=== PATIENT | female | born 1950 | race Asian ===

== ENCOUNTER 2023-08-09 23:45 | Inpatient (IN) | payer MEDICARE, OTHER, SELFPAY ==
[2023-08-09] VITALS (7 sets, daily range): BP systolic 106–230; BP diastolic 62–130
--- NOTE | 2023-08-09 19:15 | ED.GENMED ---
History of Present Illness
<Kahlil Booker PA-C - Last Filed: 08/09/23 22:38>
General
Chief Complaint: Breathing Problem
Time Seen by Provider: 08/09/23 19:09
Travel History
Have you had any contact with someone who has COVID-19?: No
Do you have any symptoms of coronavirus? Fever > 100 degrees, chills, cough, shortness of breath, sore throat, loss of taste or smell, muscle aches, or headache?: Yes
Symptoms:: SOB
History of Present Illness
History of Present Illness:
73-year-old female with history of asthma presents to the emergency department for evaluation of nasal congestion and coughing for the past 3 days. Saw her primary care physician earlier today where she was noted to be febrile and received
prescriptions for steroids and antibiotics. Over the past 1 to 2 hours her shortness of breath dramatically worsened. She reports profound wheezing, shortness of breath, and chest tightness. She has been intubated for her asthma but this was in
the remote past approximately 20 years ago. Non-smoker
Past History
<Kahlil Booker PA-C - Last Filed: 08/09/23 22:38>
Past History
ED Past Medical History: None
Social History
Tobacco: Non-smoker
Alcohol: Occasional
Drug: None
Personal:
Living: with family
Review of Systems
<Kahlil Booker PA-C - Last Filed: 08/09/23 22:38>
Review of Systems
Allergies reviewed?: Yes
All Other Systems: ROS reviewed and negative except as documented in HPI and ROS
Phy Exam
<Kahlil Booker PA-C - Last Filed: 08/09/23 22:38>
Physical Exam
Physical Exam:
GEN: Ill-appearing, in active respiratory distress
Eyes: PERRLA, EOMs intact, no scleral icterus
HENT: NCAT, oral mucosa moist
Lungs: Tachypneic with accessory muscle use, audible wheezing, diminished bibasilar breath sounds
Cardiac: Markedly tachycardic, no murmurs
Neuro: AO x 3
MSK: No gross deformity or ecchymosis. No edema. No digital clubbing
Skin: No rashes, petechiae. Normal color, no pallor or jaundice.
Psych: Calm, cooperative, proper hygiene
Scores
<Kahlil Booker PA-C - Last Filed: 08/09/23 22:38>
Heart Failure Risk
Heart Failure Risk Score: Not Applicable
Course
<Kahlil Booker PA-C - Last Filed: 08/09/23 22:38>
Orders/Labs/Results
Orders:
Orders
08/09/23 19:12
Albuterol Nebs [Ventolin Nebules] 7.5 mg .ROUTE .STK-MED ONE
08/09/23 19:13
Albuterol Sulfate [Ventolin Nebules] 10 mg INH R NOW STA
Ipratropium Nebs [Atrovent Nebules] 0.5 mg .ROUTE .STK-MED ONE
Ipratropium Nebs [Atrovent Nebules] 1 mg INH R NOW STA
Magnesium Sulfate 2 Gram/50 ml [Magnesium Sulfate] 2 gram in 50 ml IV NOW
MethylPREDNISolone PF [Solu-Medrol Pf] 60 mg IV NOW STA
08/09/23 19:14
Albuterol Nebs [Ventolin Nebules] 2.5 mg .ROUTE .STK-MED ONE
Ipratropium Nebs [Atrovent Nebules] 0.5 mg .ROUTE .STK-MED ONE
CR Chest Portable - 1 View Urgent
Comment:
Reason For Exam: SOB
Reason Study Needs to be Portable: Other
08/09/23 19:26
COVID-19 Antigen Urgent
Source: Nasal Swab
Complete Blood Count/With Diff Urgent
Comprehensive Metabolic Panel Urgent
Lactic Acid Q4H
Comment: CANCEL 2nd LACTIC ACID IF 1st LACTIC ACID IS LESS THAN 2
Prothrombin Time Urgent
Venous Blood Gas Urgent
%Oxygen/Room Air: 93
Blood Culture Q30M
JOSE Source: Blood/Venous
Specimen Description:
Blood Culture Q30M
JOSE Source: Blood/Venous
Specimen Description:
Influenza A+B Rapid Molecular Urgent
JOSE Source: Nasal Swab
Specimen Description:
08/09/23 19:29
EKG [Electrocardiogram (*1)] Urgent
Reason for Study: Shortness of Breath
EKG- Treatment ONCE
08/09/23 20:55
Ketorolac [Toradol] 15 mg IV NOW STA
08/09/23 21:00
CT Chest W/o Iv Contrast Urgent
Comment:
Reason For Exam: R back pain, possible PTX
08/09/23 21:43
Midazolam HCl [Versed] 2 mg IV NOW STA
08/09/23 22:00
Lactic Acid Q4H
Comment: CANCEL 2nd LACTIC ACID IF 1st LACTIC ACID IS LESS THAN 2
08/09/23 22:02
Midazolam HCl [Versed] 2 mg .ROUTE .STK-MED ONE
CR Chest Portable - 1 View Urgent
Comment:
Reason For Exam: sp ct
Reason Study Needs to be Portable: Patient Unstable
08/09/23 22:25
PULMONARY CONSULT Routine
Consulting Provider: Ree Arreola
Was physician already notified: Yes
Abnormal Lab Results
08/09/23
19:26
Absolute Neuts (auto) 7.5 H 10^3/uL
(1.4-6.5)
Absolute Lymphs (auto) 0.6 L 10^3/uL
(1.2-3.4)
Neutrophils % 88.5 H %
(42.2-75.2)
Lymphocytes % 7.2 L %
(20.5-51.1)
VBG pO2 144 H mmHg
(30-50)
Sodium 132 L mmol/L
(135-145)
Chloride 96 L mmol/L
(98-107)
Glucose 205 H mg/dl
(70-99)
Albumin 5.1 H g/dl
(3.5-5.0)
08/09/23 19:26
08/09/23 19:26
Vital Signs
Initial and Last Documented VS:
Initial Vital Signs
Temp Pulse Resp BP Pulse Ox
98.3 F 131 28 230/130 95
08/09/23 19:06 08/09/23 19:06 08/09/23 19:06 08/09/23 19:06 08/09/23 19:06
Last Documented Vital Signs
Temp Pulse Resp BP Pulse Ox
98.3 F 114 23 132/76 100
08/09/23 19:06 08/09/23 21:45 08/09/23 21:45 08/09/23 21:07 08/09/23 21:45
<Jimenez Barahona, DO - Last Filed: 08/09/23 22:27>
Orders/Labs/Results
Orders:
Orders
08/09/23 19:12
Albuterol Nebs [Ventolin Nebules] 7.5 mg .ROUTE .STK-MED ONE
08/09/23 19:13
Albuterol Sulfate [Ventolin Nebules] 10 mg INH R NOW STA
Ipratropium Nebs [Atrovent Nebules] 0.5 mg .ROUTE .STK-MED ONE
Ipratropium Nebs [Atrovent Nebules] 1 mg INH R NOW STA
Magnesium Sulfate 2 Gram/50 ml [Magnesium Sulfate] 2 gram in 50 ml IV NOW
MethylPREDNISolone PF [Solu-Medrol Pf] 60 mg IV NOW STA
08/09/23 19:14
Albuterol Nebs [Ventolin Nebules] 2.5 mg .ROUTE .STK-MED ONE
Ipratropium Nebs [Atrovent Nebules] 0.5 mg .ROUTE .STK-MED ONE
CR Chest Portable - 1 View Urgent
Comment:
Reason For Exam: SOB
Reason Study Needs to be Portable: Other
08/09/23 19:26
COVID-19 Antigen Urgent
Source: Nasal Swab
Complete Blood Count/With Diff Urgent
Comprehensive Metabolic Panel Urgent
Lactic Acid Q4H
Comment: CANCEL 2nd LACTIC ACID IF 1st LACTIC ACID IS LESS THAN 2
Prothrombin Time Urgent
Venous Blood Gas Urgent
%Oxygen/Room Air: 93
Blood Culture Q30M
JOSE Source: Blood/Venous
Specimen Description:
Blood Culture Q30M
JOSE Source: Blood/Venous
Specimen Description:
Influenza A+B Rapid Molecular Urgent
JOSE Source: Nasal Swab
Specimen Description:
08/09/23 19:29
EKG [Electrocardiogram (*1)] Urgent
Reason for Study: Shortness of Breath
EKG- Treatment ONCE
08/09/23 20:55
Ketorolac [Toradol] 15 mg IV NOW STA
08/09/23 21:00
CT Chest W/o Iv Contrast Urgent
Comment:
Reason For Exam: R back pain, possible PTX
08/09/23 21:43
Midazolam HCl [Versed] 2 mg IV NOW STA
08/09/23 22:00
Lactic Acid Q4H
Comment: CANCEL 2nd LACTIC ACID IF 1st LACTIC ACID IS LESS THAN 2
08/09/23 22:02
Midazolam HCl [Versed] 2 mg .ROUTE .STK-MED ONE
CR Chest Portable - 1 View Urgent
Comment:
Reason For Exam: sp ct
Reason Study Needs to be Portable: Patient Unstable
08/09/23 22:25
PULMONARY CONSULT Routine
Consulting Provider: Ree Arreola
Was physician already notified: Yes
Abnormal Lab Results
08/09/23
19:26
Absolute Neuts (auto) 7.5 H 10^3/uL
(1.4-6.5)
Absolute Lymphs (auto) 0.6 L 10^3/uL
(1.2-3.4)
Neutrophils % 88.5 H %
(42.2-75.2)
Lymphocytes % 7.2 L %
(20.5-51.1)
VBG pO2 144 H mmHg
(30-50)
Sodium 132 L mmol/L
(135-145)
Chloride 96 L mmol/L
(98-107)
Glucose 205 H mg/dl
(70-99)
Albumin 5.1 H g/dl
(3.5-5.0)
08/09/23 19:26
08/09/23 19:26
Vital Signs
Initial and Last Documented VS:
Initial Vital Signs
Temp Pulse Resp BP Pulse Ox
98.3 F 131 28 230/130 95
08/09/23 19:06 08/09/23 19:06 08/09/23 19:06 08/09/23 19:06 08/09/23 19:06
Last Documented Vital Signs
Temp Pulse Resp BP Pulse Ox
98.3 F 114 23 132/76 100
08/09/23 19:06 08/09/23 21:45 08/09/23 21:45 08/09/23 21:07 08/09/23 21:45
<Jimenez Barahona DO - Last Filed: 08/09/23 22:27>
Chest Tube
Indication for procedure:: Tension pneumothorax
Procedure completed by: Wyatt Booker
Consent form signed: No
Anesthesia: 1% Lidocaine
Chest tube placed to: right side
Size of chest tube (cm): 22
Preparation: cleaned with Betadine
Chest tube position: anterior axillary line
Chest tube sutured to skin?: Yes
Chest tube complications: none
Additional information:
Verbal consent timeout done somewhat urgently due to tension physiology seen on CAT scan patient tolerated the procedure well
<Kahlil Booker PA-C - Last Filed: 08/09/23 22:38>
MDM/Problems Addressed
MDM/Problems Addressed:
73-year-old female presents the emergency department with cold flulike symptoms. She was seen by her doctor and started on azithromycin and steroids today. She had abrupt worsening of symptoms approxi-1 hour prior to arrival, on arrival patient is
noted to be tachycardic and mildly hypoxic with coarse wheezes heard throughout all lung patino. She is somewhat diminished in the right base and chest x-ray reveals small right pneumothorax. Patient's clinical status improved from a respiratory
standpoint on neb treatments however she remained profoundly wheezy. She was then sent sent for a follow-up CT scan which shows a quite large pneumothorax with tension physiology. She was urgently consented for pigtail chest tube was placed at the
bedside by myself, patient tolerated the procedure well. Follow-up chest x-ray shows adequate placement of the tube with improvement in pneumothorax. Patient will be admitted to the hospitalist service for further management
<Kahlil Booker PA-C - Last Filed: 08/09/23 22:38>
*Critical Care Note
Total Time (30-74mins, 75-104mins- exclusive of procedures): 60 minutes
comment:
Critical care time: 60 minutes
Critical care time was exclusive of: Separately billable procedures, treating other patients, and teaching time
Critical care was necessary to treat or prevent imminent or life-threatening deterioration of the following conditions: Acute respiratory failure, tension pneumothorax
Critical care time spent personally by me on the following activities:
[x] Review of old charts
[x] Obtaining history from patient or surrogate
[x] Ordering and review of the laboratory studies
[x] Ordering and review of radiographic studies
[x] Ordering and performing treatments and interventions
[x] Patient patient's response to treatment
[x] Development of treatment plan with patient or surrogate
<Jimenez Barahona DO - Last Filed: 08/09/23 22:27>
*Radiology
Radiology exam reviewed: preliminary read by ED provider and radiology read reviewed
*Critical Care Note
Total Time (30-74mins, 75-104mins- exclusive of procedures): 30
ED Attending Note
<Kahlil Booker PA-C - Last Filed: 08/09/23 22:38>
-
Portions of this chart may have been created with voice recognition software.� Occasional wrong word or��sound alike� substitutions may have occurred due to the inherent limitations of voice recognition software.
<Jimenez Barahona DO - Last Filed: 08/09/23 22:27>
ED Attending Note
Patient seen and examined by attending physician: Yes
I performed the substantive portion of visit, reviewed & personally made and approve the management plan that is documented in note by myself or GALI.: Yes
ED Attending Note:
Seen with PA examined independently 73-year-old asthmatic intubated years ago not on much as an outpatient cough shortness of breath and wheeze treated with nebs steroids magnesium, chest x-ray and CT showed pneumothorax possible tension physiology
she is feeling better now, verbal consent obtained for thoracostomy tube
I was present and supervised physician facility assistant for chest tube
Discharge Plan
Departure
Patient Disposition: Admit
Date of Disposition: 08/09/23
Time of Disposition: 21:44
Admit to: ICU
Presentation/result/management discussed w/ accepting MD/DO: Hospitalist
Discharge Problem:
Asthma exacerbation, Tension pneumothorax
Prescriptions:
No Action
azithromycin 250 mg Tablet
0 mg PO .COMPLEX
Patient Comments:
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
Rx Instructions:
For 250 mg dose pack: take 500 mg today (day 1), then 250 mg for 4 days (days 2-5)
methylprednisolone [Medrol (Evan)] 4 mg Tablets,Dose Pack
0 mg PO PER PKG DIR
Patient Comments:
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
albuterol sulfate [ProAir HFA] 90 mcg/actuation Hfa Aerosol Inhaler
2 puff INHALATION R Q6HPRN PRN (Reason: sob)
Referrals:
Erma Petersen MD [Family Provider] -
Interventions
Interventions:
ED- Cardiac Assessment Last Done: 08/09/23 20:14
ED- Pulmonary Assessment Last Done: 08/09/23 20:14
[2023-08-09] MEDS: VENTOLIN NEBULES 10 MG INH (19:22)
[2023-08-09] MEDS: ATROVENT NEBULES 1 MG INH (19:22)
[2023-08-09] MEDS: MAGNESIUM SULFATE 50 IV (19:28)
[2023-08-09] MEDS: SOLU-MEDROL PF 60 MG IV (19:28)
[2023-08-09 19:37] LABS: % Basophils 0.7 % (0-2); % Eosinophils 0.1 % (0-6); % Immature Granulocytes 0.4 % (0-0.5); % Lymphocytes 7.2 % (20.5-51.1); % Monocytes 3.1 % (1.7-9.3); % Neutrophils 88.5 % (42.2-75.2); Absolute Basophils 0.1 10^3/uL (0-0.2); Absolute Lymphocytes 0.6 10^3/uL (1.2-3.4); Absolute Monocytes 0.3 10^3/uL (0.1-0.6); Absolute Neutrophils 7.5 10^3/uL (1.4-6.5); Hematocrit 40.4 % (37.0-47.0); Hemoglobin 14.2 g/dL (12.0-16.0); Mean Corp Hgb Conc. 35.1 g/dL (33.0-37.0); Mean Corpuscular Hgb 29.8 pg (27.0-31.0); Mean Corpuscular Volume 84.7 fL (81.0-99.0); Mean Platelet Volume 9.5 fL (7.4-10.4); Nucleated Red Blood Cells % 0 %; Platelet Count 275 10^3/uL (130-400); Red Blood Cell Count 4.77 10^6/uL (4.20-5.40); Red Cell Dist. Width 13.6 % (11.5-14.5); White Blood Cell Count 8.4 10^3/uL (4.8-10.8)
[2023-08-09 19:38] LABS: Venous Blood Gas O2 Sat % 99.9 %; Venous Blood Gas pCO2 42 mmHg (35-48); Venous Blood Gas pO2 144 mmHg (30-50)
[2023-08-09 19:47] LABS: INR 0.93; PT 12.3 Sec (11.4-14.6)
[2023-08-09 19:51] LABS: Lactic Acid 1.9 mmol/L (0.7-2.0)
[2023-08-09 19:52] LABS: ALT (SGPT) 24 U/L (0-35); AST (SGOT) 33 U/L (14-36); Albumin 5.1 g/dl (3.5-5.0); Alkaline Phosphatase 58 U/L (38-126); Blood Urea Nitrogen 12 mg/dl (7-17); Calcium 9.6 mg/dl (8.4-10.2); Carbon Dioxide 24 mmol/L (22-30); Chloride 96 mmol/L (98-107); Glucose 205 mg/dl (70-99); Potassium 4.6 mmol/L (3.5-5.1); Sodium 132 mmol/L (135-145); Total Bilirubin 0.3 mg/dl (0.2-1.3); Total Protein 7.9 g/dl (6.3-8.2); eGFR > 60.00
[2023-08-09 19:59] LABS: COVID-19 Antigen Negative (Negative)
[2023-08-09] MEDS: TORADOL 15 MG IV (21:01)
[2023-08-09] MEDS: VERSED 2 MG IV (21:50)
--- NOTE | 2023-08-09 22:21 | EDRN ---
14Fr chest tube placed by Wyatt gonsales. Patient tolerated well. No drainage, no air bubbles. Patient states chest pain is gone since the insertion of tube.
--- NOTE | 2023-08-09 23:27 | HPS.HSE ---
Family Physician
-
Family Physician: Erma Petersen
Chief Complaint
-
SOB
History of Present Illness
Patient is a 73y F with PMH significant for asthma who presents to ED complaining of SOB. Patient reports several days of cough, congestion and mild wheezing. She denies any fevers, known sick contacts. She was seen by a physician today and
prescribed azithromycin and Medrol pack. Upon her return home this afternoon, patient developed sudden and severe SOB - much worse than previous - and presented to the ED for evaluation.
In the ED, evaluation revealed R sided pneumothorax with tension effect. Chest tube was placed in the ED and patient noted immediate and significant improvement in her symptoms.
She is currently resting comfortably and continues to feel improved from presentation.
Patient has history of severe asthma having required intubation in the past. She takes no daily / controller medications however.
She denies any prior history of pneumothorax. She denies any recent history of injury, trauma, etc.
Medical History
Past Medical History
Past Medical History: Reports Other
Additional Past Medical History:
Asthma
Past Surgical History: Reports Other
Additional Past Surgical History:
Bladder Sling
Right Elbow ORIF
Social History
Tobacco: Non-smoker
Alcohol: None
Drug: None
Family History
Family History: Not pertinent
Allergies / Home Medications
Allergies reflects when Allergies were last updated in [employer].
Home Medications with original date entered in [employer]
Allergy/Medication List:
Allergies
Allergy/AdvReac Type Severity Reaction Status Date / Time
NKA - No Known Allergies Allergy Unknown Uncoded 08/09/23 19:06
Home Medications
albuterol sulfate 90 mcg/actuation aerosol inhaler (ProAir HFA) 2 puff inhalation R Q6HPRN PRN sob 08/09/23
azithromycin 250 mg tablet 0 mg PO .COMPLEX 08/09/23
methylprednisolone 4 mg tablets in a dose pack (Medrol (Evan)) 0 mg PO PER PKG DIR 08/09/23
Review of Systems
-
History Source: Patient
A 12 point ROS was completed and negative except as noted: Yes
Constitutional: Reports Fatigue; Denies Fever or Chills
EENT: Denies Sore Throat
Respiratory: Reports Cough and Trouble Breathing
Cardiac: Reports Chest Pain; Denies Palpitations
Abdomen/GI: Denies Abdominal Pain, Nausea, Vomiting or Diarrhea
: Denies Dysuria, Frequency or Flank Pain
Musculoskeletal: Reports Other (Back Pain)
Neurological: Denies Dizzy or Headache
Psych: Denies Depression or Anxiety
Physical Exam
Vital Signs
Vital Signs
Temp Pulse Resp BP Pulse Ox
98.3 F 114 23 132/76 100
08/09/23 19:06 08/09/23 21:45 08/09/23 21:45 08/09/23 21:07 08/09/23 21:45
Physical Exam
General: Other (73y F resting comfortably in NAD.)
HEENT: Moist mucous membranes and PERRLA
Respiratory: Clear and Other (Perhaps very faint expiratory wheeze. Right sided chest tube in place to suction.); No Rales or Rhonchi
Cardiac: S1/S2 and Regular Rhythm; No Murmur
GI: Soft, Non Tender, Non Distended and Normal Bowel Sounds
Musculoskeletal: No Clubbing, No Cyanosis and No Edema
Neuro: AO x 3
Laboratory Results
-
08/09/23 19:26
08/09/23 19:
Laboratory Results
PT 12.3 Sec (11.4-14.6) 08/09/23 19:26
INR 0.93 08/09/23 19:26
Lactic Acid 1.9 mmol/L (0.7-2.0) 08/09/23 19:
Total Bilirubin 0.3 mg/dl (0.2-1.3) 08/09/23 19:26
AST 33 U/L (14-36) 08/09/23 19:26
ALT 24 U/L (0-35) 08/09/23 19:26
Alkaline Phosphatase 58 U/L (38-126) 08/09/23 19:26
Impression/Plan
-
A/P: Patient is a 73y F with PMH significant for asthma who presents to ED with recent cough / cold symptoms and abrupt worsening of SOB today.
Right Sided Tension Pneumothorax
- Admit for further evaluation and treatment.
- Patient with immediate and significant improvement in symptoms s/p chest tube placement in the ED.
- Maintain chest tube to suction overnight.
- Pulmonary evaluation in the AM.
- Repeat CXR in the AM - follow serial imaging.
- Follow for any new / recurrent dyspnea or other complaints.
Asthmatic Bronchitis with Acute Exacerbation
- COVID / Influenza negative in the ED.
- Afebrile and without leukocytosis, etc.
- Will continue IV steroids for now - but taper quickly if able. Not a great deal of wheezing at present.
- Abx / doxycycline for now. Follow for any fever or other new symptoms.
- Follow for continued clinical improvement.
- Albuterol PRN.
- Pulmonary evaluation as noted above.
DVT Prophylaxis: SCDs
Code Status: Full
[2023-08-10] VITALS (10 sets, daily range): BP systolic 113–160; BP diastolic 67–93; BMI 26.0
--- NOTE | 2023-08-10 01:41 | PTCARENOTE ---
c.t to minus 20 - no crepitus/tidaling 2 liters o2 . sinus tach. ax3- pt voided on bsc- expresses feeling much better after ct insertion- afebrile
[2023-08-10] MEDS: VIBRAMYCIN 260 MG IV ×2 (03:01→13:12)
[2023-08-10] MEDS: SOLU-MEDROL PF 40 MG IV ×3 (03:01→20:43)
[2023-08-10 04:06] LABS: Hematocrit 39.5 % (37.0-47.0); Hemoglobin 13.8 g/dL (12.0-16.0); Mean Corp Hgb Conc. 34.9 g/dL (33.0-37.0); Mean Corpuscular Hgb 30.1 pg (27.0-31.0); Mean Corpuscular Volume 86.2 fL (81.0-99.0); Mean Platelet Volume 10.2 fL (7.4-10.4); Platelet Count 262 10^3/uL (130-400); Red Blood Cell Count 4.58 10^6/uL (4.20-5.40); Red Cell Dist. Width 13.6 % (11.5-14.5); White Blood Cell Count 8.3 10^3/uL (4.8-10.8)
[2023-08-10 04:31] LABS: Blood Urea Nitrogen 11 mg/dl (7-17); Calcium 9.4 mg/dl (8.4-10.2); Carbon Dioxide 23 mmol/L (22-30); Chloride 98 mmol/L (98-107); Estimated Creatinine Clearance 68 ml/min; Glucose 228 mg/dl (70-99); Potassium 4.4 mmol/L (3.5-5.1); Sodium 134 mmol/L (135-145); eGFR > 60.00
--- NOTE | 2023-08-10 07:47 | W.PN.HOSP.TC ---
Today's Communication/Plan
-
see bold
Assessment / Plan
Assessment / Plan
73y F with PMH significant for asthma who presents to ED with recent cough / cold symptoms and abrupt worsening of SOB today.
Gen: NAD, AAOx3.
Eyes: EOMI, PERRLA, no scleral icterus.
Neck: supple.
CV: RRR, +S1/S2, no m/r/g.
Resp: CTAB, no rales, wheezes, or rhonchi.
Abd: +BS, soft, NT, ND
Skin: No rashes.
Neuro: CN 2-12 intact, non-focal.
Psych: Normal mood and affect.
Right Sided Tension Pneumothorax
�- Patient with immediate and significant improvement in symptoms s/p chest tube placement in the ED.
�- Maintain chest tube to suction
�- c/s Pulmonary
�- check CXR this AM - follow serial imaging.
Asthmatic Bronchitis with Acute Exacerbation:
�- COVID / Influenza negative in the ED.
�- Afebrile and without leukocytosis, etc.
�- Will continue IV steroids for now - but taper quickly if able.� Not a great deal of wheezing at present.
�- Abx / doxycycline for now.� Follow for any fever or other new symptoms.
�- Albuterol PRN.
�- Pulmonary c/s
FULL/SCDs
Anticipated Discharge: 24 - 48 hours
Subjective/Interval History
-
Date of Service: August 10, 2023
Denies SOB. Mild pain at chest tube site.
Objective Data
-
Labs:
Laboratory Results
08/09/23 08/10/23
19:26 03:11
WBC 8.4 8.3
Hgb 14.2 13.8
Hct 40.4 39.5
Plt Count 275 262
PT 12.3
INR 0.93
Sodium 132 L 134 L
Potassium 4.6 4.4
Chloride 96 L 98
Carbon Dioxide 24 23
BUN 12 11
Creatinine 0.7 0.4 L
Glucose 205 H 228 H
Calcium 9.6 9.4
Total Bilirubin 0.3
AST 33
ALT 24
Alkaline Phosphatase 58
Vital Signs:
Vital Signs
Temp Pulse Resp BP Pulse Ox
97.4 F 92 17 122/79 94
08/10/23 03:30 08/10/23 06:00 08/10/23 06:00 08/10/23 06:00 08/10/23 06:00
I&O
08/09/23 08/10/23 08/11/23
06:59 06:59 07:59
Intake Total 380 / 380
Balance 380 / 380
--- NOTE | 2023-08-10 08:44 | PTCARENOTE ---
Patient received from canal structure operator. Patient resting comfortably in bed. AAO, VSS. No events noted overnight. No complaints of pain at this time. Currently with right chest tube, minimal drainage if any, site CDI. Now on Room Air. Diet advanced
to Regular. Call villegas in reach.
--- NOTE | 2023-08-10 10:54 | CON.PUL ---
Consultation
Consultation Request
Date/Time Consultation Requested: 08/09/23
Date/Time Consultation Performed: 08/10/23
Performing Provider: Elba
Reason for Consultation: Asthma/PTX
Medical History
-
History of Present Illness:
Patient is a 73 year old F with PMH significant for asthma who presents to ED complaining of SOB.� Patient reports several days of cough, congestion and mild wheezing.� She denies any fevers, known sick contacts.� She was seen by her OP PCP and
prescribed azithromycin and Medrol pack.� Upon her return home this afternoon, patient developed sudden and severe SOB, acute on chronic worsening. In the ED, evaluation revealed R sided pneumothorax with concern for tension.� Chest tube was placed
in the ED and patient noted immediate and significant improvement in her symptoms.
Repeat CXR improved.
Patient has history of severe asthma having required intubation in the past.� She does not see pulmonary OP and is not on controller inhaler medications. She denies any prior history of pneumothorax.�
Nonsmoker.
Denies history of lung disease in the family.
Past Medical History
Past Medical History: Other (see list below)
Social History
Tobacco: Non-smoker
Alcohol: None
Drug: None
Family History
Family History: Reviewed & Not Pertinent
Allergies / Home Medications
Allergies
Allergy/AdvReac Type Severity Reaction Status Date / Time
NKA - No Known Allergies Allergy Unknown Uncoded 08/09/23 19:06
Home Medications
Medication Instructions Recorded Confirmed Last Taken Type
albuterol sulfate 90 mcg/actuation 2 puff inhalation R Q6HPRN PRN sob 08/09/23 08/09/23 Unknown History
aerosol inhaler (ProAir HFA)
azithromycin 250 mg tablet 0 mg PO .COMPLEX 08/09/23 08/09/23 08/09/23 History
500 mg
methylprednisolone 4 mg tablets in 0 mg PO PER PKG DIR 08/09/23 08/09/23 08/09/23 History
a dose pack (Medrol (Evan)) 16 mg
Review of Systems
-
History Source: Patient
All other systems: Negative unless noted
Vitals / Labs / Diagnostic Testing
Vital Signs
Temp Pulse Resp BP Pulse Ox
97.6 F 99 21 141/85 93
08/10/23 07:44 08/10/23 08:00 08/10/23 08:00 08/10/23 08:00 08/10/23 08:00
Lab Data
08/10/23 03:11
08/10/23 03:11
Laboratory Results
08/09/23
19:26
PT 12.3
INR 0.93
Microbiology
08/09/23 19:26 Nasal Swab Influenza Types A & B (CHELO) - Final
Negative for Influenza A & B, NAAT
Negative results must be combined with clinical observations
and patient history.
Nucleic Acid Amplification test (NAAT)performed on the
[employer] platform.
Diagnostic Testing:
Physical Exam
-
HEENT: Normocephalic, Anicteric and Moist Mucous Membranes
Cardiovascular: S1/S2 and Regular Rhythm
Respiratory: Wheeze (slight with cough), Non-Labored Respirations and Other (chest tube, no leak)
GI: Soft, Non Distended and Non Tender
Neurology: Awake, Alert, Oriented, AO x 3 and No Motor Deficits
Skin: Warm, Dry and Good Color
General: Comfortable and Other (NAD)
Assessment
-
Patient is a 73 year old F with PMH significant for asthma who presents to ED complaining of chronic SOB for several weeks.� Patient then noted sudden and severe SOB in the past 24 hours, acute on chronic worsening. In the ED, evaluation
revealed R sided pneumothorax with concern for tension s//p Chest tube placement in ED. We are consulted for eval 08/10/23.
Acute R sided pneumothorax s/p chest tube placement
Asthma exacerbation
Outpatient treatment for possible bronchitis, fever at home
Hyponatremia
Hyperglycemia
Conditions present [employer]
R arm fracture
Osteoporosis
Cystocele vag keri 2006
Constipation
Asthma
Plan
No oxygen was needed on admission, currently saturating >90% on RA
Prior history of lung disease is noted including severe asthma having required intubation in the past.�
She does not see pulmonary OP and is not on controller inhaler medications. No sign Eos on cbc.
She denies any prior history of pneumothorax.�
Nonsmoker.
Acute ptx suspect from coughing
CXR obtained indicating moderate size with possible tension s/p chest tube placement
Repeat CXR appears improved
Can trial waterseal to see if leak persists, not leaking for me but does not appear on suction
Other imaging reviewed, CT showing ptx, no bullae
We will add ICS inhaler to reduce her cough complaints
Will need outpatient pulmonary evaluation in our office for PFTs and 6MWT
Reviewed with patient
We will follow
Diagnostic Data
Chest XR- 08/09/23- A right chest tube catheter has been placed. No radiographically demonstrable residual pneumothorax. Mormon of mediastinal alignment. Minor atelectasis at the right lung base. Small amount of subcutaneous emphysema adjacent to
the right lateral chest wall.
CT Scan: CHEST 08/09/23- Large right pneumothorax, suggested under mild tension, with slight leftward shift of the heart and mediastinum.
Echo:
PFT's:
Reports and relevant images were personally reviewed.
[2023-08-10] MEDS: SENOKOT-S 1 TABLET PO (22:20)
[2023-08-11] VITALS (12 sets, daily range): BP systolic 111–177; BP diastolic 66–104; BMI 25.8
[2023-08-11] MEDS: VIBRAMYCIN 260 MG IV ×2 (03:09→14:45)
[2023-08-11] MEDS: SOLU-MEDROL PF 40 MG IV ×3 (04:31→21:18)
--- NOTE | 2023-08-11 05:17 | PTCARENOTE ---
Chest tube dressing clean dry and intact, no output overnight, remains connected to suction at -20mmgh. Pt has not had documented BM during admission. CELERY TIER notified and Senna ordered. No acute changes overnight. Please see full head to toe for full
assessment.
--- NOTE | 2023-08-11 07:44 | PTCARENOTE ---
New order for chest tube to water seal. SCanit output
--- NOTE | 2023-08-11 10:28 | W.PN.PUL3 ---
Today's Communication / Plan
-
Water seal this AM, repeat CXR stable/improved
Will plan for clamp trial and discontinuation in AM
Add symbicort, decrease IV steroid
Assessment
-
Patient is a 73 year old F with PMH significant for asthma who presents to ED complaining of chronic SOB for several weeks.� Patient then noted sudden and severe SOB in the past 24 hours, acute on chronic worsening. In the ED, evaluation
revealed R sided pneumothorax with concern for tension s//p Chest tube placement in ED. We are consulted for eval 08/10/23.
Acute R sided pneumothorax s/p chest tube placement 08/09/23
Asthma exacerbation
Outpatient treatment for possible bronchitis, fever at home
Hyponatremia
Hyperglycemia
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
R arm fracture
Osteoporosis
Cystocele vag keri 2006
Constipation
Asthma
Plan
No oxygen was needed on admission, currently saturating >90% on RA
Prior history of lung disease is noted including severe asthma having required intubation in the past.�
She does not see pulmonary OP and is not on controller inhaler medications. No sign Eos on cbc.
She denies any prior history of pneumothorax.�
Nonsmoker.
Acute ptx suspect from coughing due to asthma flare
CXR obtained indicating moderate size with possible tension s/p chest tube placement 08/09/23
Repeat CXR 08/10/23 appears improved--small apical ptx seen, suction continued overnight
Placed on water seal this AM 08/11/23, repeat CXR (on my review, improved)--will leave on water seal 24 hours
Plan for clamp trial in AM and eval for discontinuation
Reviewed plan with RN
Other imaging reviewed, CT showing ptx, no bullae
Asthma exacerbation
Add ICS inhaler to reduce her cough complaints--symbicort, to continue at home
Decrease IV steroid dosing with plan for taper at discharge, can transition to oral tomorrow if improving
Will need outpatient pulmonary evaluation in our office for PFTs and 6MWT
Reviewed with patient
Diagnostic Data
Chest XR- 08/09/23- A right chest tube catheter has been placed. No radiographically demonstrable residual pneumothorax. Hindu of mediastinal alignment. Minor atelectasis at the right lung base. Small amount of subcutaneous emphysema adjacent to
the right lateral chest wall.
CT Scan: CHEST 08/09/23- Large right pneumothorax, suggested under mild tension, with slight leftward shift of the heart and mediastinum.
Echo:
PFT's:
Reports and relevant images were personally reviewed.
Subjective Data
-
Date of Service:
Date of Service: August 11, 2023
Chief Complaint: Pulmonary Follow Up
Subjective:
Doing well today. No new events
Had some wheezing which resolved
Objective Data
Data Reviewed
Vital Signs / I&O / Oxygen:
Vital Signs
Temp Pulse Resp BP Pulse Ox
97.5 F 85 17 157/90 95
08/11/23 07:50 08/11/23 06:03 08/11/23 06:03 08/11/23 06:03 08/11/23 08:00
Intake and Output
08/10/23 08/11/23 08/12/23
05:59 06:59 06:59
Intake Total
Output Total
Balance
SaO2 95
Nasal Cannula flow liters per 2
minute
Physical Exam
General: Comfortable and Other (NAD)
HEENT: Normocephalic and Sinus Tenderness
Cardiovascular: S1-S2 and Regular Rhythm
Respiratory: Clear, Non-Labored Respirations and Chest Tube
GI: Soft, Non Distended and Non Tender
Neurology: Awake, Alert, Oriented, AO x 3 and No Motor Deficits
Skin: Warm, Dry and Good Color
Labs/Micro/Reports
Lab Data
08/10/23 03:11
08/10/23 03:11
Microbiology
08/09/23 19:26 Blood/Venous Blood Culture - Preliminary
No Growth in 24 hours- Final report to follow
08/09/23 19:26 Blood/Venous Blood Culture - Preliminary
No Growth in 24 hours- Final report to follow
08/09/23 19:26 Nasal Swab Influenza Types A & B (CHELO) - Final
Negative for Influenza A & B, NAAT
Negative results must be combined with clinical observations
and patient history.
Nucleic Acid Amplification test (NAAT)performed on the
[employer] platform.
[2023-08-11] MEDS: VENTOLIN NEBULES 2.5 MG INH ×2 (10:47→18:26)
--- NOTE | 2023-08-11 10:53 | PTCARENOTE ---
Pt audibly wheezing , rsp tt breathing tx in progress
--- NOTE | 2023-08-11 10:54 | W.PN.HOSP.TC ---
Today's Communication/Plan
-
see bold
Assessment / Plan
Assessment / Plan
73y F with PMH significant for asthma who presents to ED with recent cough / cold symptoms and abrupt worsening of SOB today.
Gen: NAD, AAOx3.
Eyes: EOMI, PERRLA, no scleral icterus.
Neck: supple.
CV: remains RRR, +S1/S2, no m/r/g.
Resp: B/L wheezing
Abd: +BS, soft, NT, ND
Skin: No rashes.
Neuro: remains CN 2-12 intact, non-focal.
Psych: Normal mood and affect.
CXR 08/10/23: small right apical pneumothorax down to the level of the right second rib posteriorly despite the presence of the right-sided chest tube.
Right Sided Tension Pneumothorax:
-Patient with immediate and significant improvement in symptoms s/p chest tube placement in the ED.
-cont chest tube (now to waterseal), pulm following
Asthmatic Bronchitis with Acute Exacerbation:
-COVID / Influenza negative in the ED
-afebrile and without leukocytosis
-cont solumedrol/Doxy
-Albuterol PRN.
FULL/SCDs
Anticipated Discharge: 24 - 48 hours
Subjective/Interval History
-
Date of Service: August 11, 2023
Denies SOB but c/o wheezing O/N.
Objective Data
-
Vital Signs:
Vital Signs
Temp Pulse Resp BP Pulse Ox
97.5 F 90 18 157/90 96
08/11/23 07:50 08/11/23 10:50 08/11/23 10:50 08/11/23 06:03 08/11/23 10:50
I&O
08/10/23 08/11/23 08/12/23
05:59 06:59 06:59
Intake Total
Output Total
Balance
[2023-08-11] MEDS: SYMBICORT 160/4.5 MCG INHALER 2 PUFF INH (18:22)
[2023-08-12] VITALS (13 sets, daily range): BP systolic 127–175; BP diastolic 79–99; BMI 26.1
[2023-08-12] MEDS: VIBRAMYCIN 260 MG IV ×2 (02:19→14:52)
--- NOTE | 2023-08-12 02:48 | PTCARENOTE ---
Chest tube remains to water seal. NO drainage noted. Dressing is clean, dry, and intact. Pt continues to SAT 95% on RA overnight. Pt complins of no pain at this time. No acute changes. See nursing shift assessment for full head to toe.
[2023-08-12] MEDS: SYMBICORT 160/4.5 MCG INHALER 2 PUFF INH ×2 (07:43→20:33)
[2023-08-12] MEDS: VENTOLIN NEBULES 2.5 MG INH (07:45)
--- NOTE | 2023-08-12 09:01 | W.PN.PUL3 ---
Today's Communication / Plan
-
Clamp chest tube now and remain clamped for 4-6 hours with repeat CXR at 1600
If repeat CXR shows no e/o PTX recurrence, then I will remove chest tube at bedside with repeat CXR tomorrow AM. If no PTX recurrence tomorrow AM then she can be DC'd home tomorrow
Continue symbicort 160mcg and resume on discharge with outpatient follow up
Currently on Solu-Medrol 40 mg IV q12hr from 40mg IV q8hr �-> wean as tolerated. Can start PO prednisone tomorrow.
Pulmonary service will continue to follow along.
Assessment
-
Patient is a 73 year old F with PMH significant for asthma who presents to ED complaining of chronic SOB for several weeks.� Patient then noted sudden and severe SOB in the past 24 hours, acute on chronic worsening. In the ED, evaluation
revealed R sided pneumothorax with concern for tension s//p Chest tube placement in ED. We are consulted for eval 08/10/23.
Acute R sided pneumothorax s/p chest tube placement 08/09/23 - placed in ER
Asthma exacerbation
Outpatient treatment for possible bronchitis, fever at home (likely due to URI prior to arrival)
Hyponatremia
Hyperglycemia
Conditions present REGULATORY ATTORNEY
R arm fracture
Osteoporosis
Cystocele vag sling 2006
Constipation
Asthma
Plan
No oxygen was needed on admission, currently breathing comfortably on room air with SpO2 >92%
Prior history of lung disease is noted including severe asthma having required intubation in the past.�
She does not see pulmonary OP and is not on controller inhaler medications. No sign Eos on cbc. --> considering her acute exacerbation, she is amenable to starting maintenance therapy with LABA/ICS --> continue Symbicort 160mcg and continue this
on discharge
She denies any prior history of pneumothorax.�
Nonsmoker.
Acute ptx suspect from coughing due to asthma flare
CXR obtained indicating moderate size with possible tension s/p chest tube placement 08/09/23
Repeat CXR 08/10/23 appears improved--small apical ptx seen, suction continued overnight
Placed on water seal AM of 08/11/23, repeat CXR shows that right apical pneumothorax has resolved.
Patient has had continuous waterseal overnight (08/10 - 08/11) and there is no persistent air leak this morning. I will clamp chest tube now and remain for 4-6 hours with repeat CXR.
Reviewed plan with RN
Other imaging reviewed, CT showing ptx, no bullae
Avoid incentive spirometer or any sudden inspiratory effort considering her recent acute large right-sided pneumothorax as this could be a risk factor for recurrence of pneumothorax.
Asthma exacerbation
Add LABA/ICS to reduce her cough complaints--symbicort 160mcg --> this will continue at home --> patient is in agreement with this even though she has not been on maintenance inhaler therapy prior to this current hospitalization
Continue systemic steroids --> will continue IV steroids today considering she continues to wheeze at bedside (albeit it is faint)��>transition to oral prednisone tomorrow with plan for taper at discharge
Will need outpatient pulmonary evaluation in our office for PFTs and 6MWT
Reviewed with patient and all questions were answered.
There was a high level of medical decision making for this case considering her acute exacerbation of of asthma and an acute right side pneumothorax with developing tension which posed a threat to her life/bodily function.
Diagnostic Data
Chest XR- 08/09/23- A right chest tube catheter has been placed. No radiographically demonstrable residual pneumothorax. Tenriism of mediastinal alignment. Minor atelectasis at the right lung base. Small amount of subcutaneous emphysema adjacent to
the right lateral chest wall.
CXR 08-11-2023: Previously noted trace pneumothorax at the right apex has resolved. Right chest tube catheter remains in similar position as that seen previously. Relatively stable minor subcutaneous emphysema in the right chest wall. Mild, slightly
increased subcutaneous emphysema at the base of the right neck. No evidence of pneumonia or congestive heart failure.
CT Scan: CHEST 08/09/23- Large right pneumothorax, suggested under mild tension, with slight leftward shift of the heart and mediastinum.
Reports and relevant images were personally reviewed.
Subjective Data
-
Date of Service:
Date of Service: August 12, 2023
Chief Complaint: Pulmonary Follow Up
Subjective:
Patient seen this morning. She feels well. She is sitting in a chair in no acute distress. Chest tube remains in place, and on waterseal. There is no persistent air leak seen during tidal breathing or forced expiration (i.e. cough). She denies
chest pain, headache, abdominal pain, fevers or chills.
Review of Systems
General: Other (12 point ROS performed and is negative unless mentioned above.)
Objective Data
Data Reviewed
Vital Signs / I&O / Oxygen:
Vital Signs
Temp Pulse Resp BP Pulse Ox
97.9 F 77 16 163/91 94
08/12/23 11:45 08/12/23 08:00 08/12/23 08:00 08/12/23 08:00 08/12/23 09:45
Intake and Output
08/11/23 08/12/23 08/13/23
06:59 06:59 06:59
Intake Total 1230 / 1230
Output Total 700 / 700
Balance 530 / 530
SaO2 94
Nasal Cannula flow liters per 2
minute
Physical Exam
General: Comfortable and Other (NAD)
HEENT: Normocephalic and Sinus Tenderness
Cardiovascular: S1-S2 and Peripheral Edema (negative)
Respiratory: Clear, Wheeze (heard best in anterior lung patino (L>R)), Crackles (right middle lung field to RLL), Rhonchi (negative), Non-Labored Respirations, Stridor (negative) and Chest Tube (right hemithorax)
GI: Soft, Non Distended and Non Tender
Neurology: AO x 3 and No Motor Deficits
Skin: Warm and Dry
Labs/Micro/Reports
Lab Data
08/10/23 03:11
08/10/23 03:11
Microbiology
08/09/23 19:26 Blood/Venous Blood Culture - Preliminary
No Growth in 48 hours- Final report to follow
08/09/23 19:26 Blood/Venous Blood Culture - Preliminary
No Growth in 48 hours- Final report to follow
08/09/23 19:26 Nasal Swab Influenza Types A & B (CHELO) - Final
Negative for Influenza A & B, NAAT
Negative results must be combined with clinical observations
and patient history.
Nucleic Acid Amplification test (NAAT)performed on the
[employer] platform.
[2023-08-12] MEDS: SOLU-MEDROL PF 40 MG IV ×2 (09:32→21:14)
--- NOTE | 2023-08-12 09:45 | PTCARENOTE ---
Patient received from customer relations consultant. Patient resting comfortably in bed. AAO, VSS. No events noted overnight. No complaints of pain at this time. Currently with right chest tube, minimal drainage if any, site CDI. Currently set to water seal but
will be clamping later this morning. Continues on Room Air. Call villegas in reach.
--- NOTE | 2023-08-12 11:42 | PTCARENOTE ---
Pulmonary at bedside, chest tubed clamped. Follow up xray to follow
--- NOTE | 2023-08-12 16:15 | W.PN.HOSP.TC ---
Today's Communication/Plan
-
Chest tube clamping
Steroid taper
Assessment / Plan
Assessment / Plan
Impression:
Right-sided tension pneumothorax.
Asthma exacerbation.
Asthmatic bronchitis on outpatient antibiotics prior to presentation
Hyponatremia
Steroid-induced hyperglycemia
Untreated hypertension
Conditions prior to admission:
Moderate persistent asthma.
Osteoporosis
Plan:
Right-sided tension pneumothorax suspected secondary to asthma exacerbation and persistent cough.
Status post chest tube placed on 08/08 in ED.
Follow-up imaging with improved pneumothorax
Chest tube on waterseal on 08/10 and clamped on 08/11.
Follow-up chest x-ray pending.
If improved, plan is to remove chest tube with follow-up chest x-ray on 08/12 AM.
Asthma exacerbation
Acute asthmatic bronchitis.
No visible infiltrates on chest x-ray.
Continue doxycycline
Continue nebulized bronchodilators
Continue IV corticosteroids, Decadron dose taper today with plan to transition to prednisone in a.m. 08/12
Noted with elevated blood pressure.
Monitor closely
Not on antihypertensive regimen prior to presentation.
Possibly related to pain on corticosteroid therapy.
If persistent consider initiate antihypertensive therapy send amlodipine
Anticipated Discharge: 24 - 48 hours
Subjective/Interval History
-
Date of Service: August 12, 2023
Objective Data
-
Vital Signs:
Vital Signs
Temp Pulse Resp BP Pulse Ox
97.9 F 80 18 168/85 96
08/12/23 11:45 08/12/23 14:16 08/12/23 14:16 08/12/23 14:16 08/12/23 14:00
I&O
08/11/23 08/12/23 08/13/23
06:59 06:59 06:59
Intake Total 1230 / 1230
Output Total 700 / 700
Balance 530 / 530
Physical Exam
-
General: Well Developed and No Apparent Distress
HEENT: Normocephalic, Atraumatic and Moist Mucous Membranes
Respiratory: Clear to Auscultation and Chest Tubes (right,clamped); Negative Wheezes
Cardiac: Regular Rhythm and S1/S2; Negative Murmur, Rub or Gallop
GI: Soft, Nontender, Nondistended and Normal Bowel Sounds; Negative Organomegaly
Rectal: Deferred by Provider
Musculoskeletal: No Clubbing, No Cyanosis and No Edema
Skin: Negative Rash
Neuro: Nonfocal/Grossly Intact
--- NOTE | 2023-08-12 16:22 | CM ---
Patient with Dx Right Sided Tension Pneumothorax, Asthmatic Bronchitis with Acute Exacerbation. Room air. Chest tube - clamped. Receiving IV Doxycycline, IV Solumedrol.
Met with patient who resides with her in a 2 story house.
The patient is able to climb the stairs to 2nd floor bedroom and says there is a bedroom she can use on first floor if needed.
The patient has been independent in ADLs and ambulation.
She walks 3-4 miles/day.
The patient has no DME, prior VN or SNF.
PCP - Erma Petersen
Pharmacy - [facility]
The patient says she thinks she will be discharged tomorrow and feels she will be ready to go home. IMM completed. The patient declined the offer for VN.
No CM d/c needs identified.
Plan home.
--- NOTE | 2023-08-12 17:51 | PTCARENOTE ---
Patient with elevated SBP's >160. Hospitalist made aware.
--- NOTE | 2023-08-12 18:05 | W.PN.UPDATE ---
Update Note
Progress Note Update
CXR repeated @ 1600. There is subcutaneous emphysema along the right lateral chest wall and lower neck but no evidence of pneumothorax. Patient feels well, denies shortness of breath or chest pain. Decision made to remove right-sided chest tube
at bedside. Suture removal kit was utilized, and patient exhaled by humming when it came time to physically remove the chest tube. Site appeared clean. There is no hissing sounds after removal or palpable subcutaneous emphysema appreciated on
exam near the insertion site.
Will check another CXR in the morning and if CXR shows no recurrence of pneumothorax and patient is stable and ambulating on room air without any respiratory symptoms, then I am okay with her being discharged home tomorrow. Bedside RN made aware.
I answered all the patient's questions.
--- NOTE | 2023-08-12 18:22 | PTCARENOTE ---
Pulmonary at bedside, chest tube removed without incident. Patient stated 'she feels great and excited'.
--- NOTE | 2023-08-12 22:13 | PTCARENOTE ---
Assumed care of Pt from Day RN. Pt AAOX3 presents with pleasant upbeat demeanor. Pt has no complaints at this time. Assessment, vitals and care as charted.
[2023-08-13] VITALS (8 sets, daily range): BP systolic 149–177; BP diastolic 91–106; BMI 25.7
[2023-08-13] MEDS: VIBRAMYCIN 260 MG IV (01:45)
[2023-08-13] MEDS: SYMBICORT 160/4.5 MCG INHALER 2 PUFF INH (07:17)
--- NOTE | 2023-08-13 08:55 | W.PN.PUL3 ---
Today's Communication / Plan
-
Continue symbicort 160mcg and resume on discharge with outpatient follow up
Currently on Solu-Medrol 40 mg IV q12hr from 40mg IV q8hr �-> wean as tolerated. Can start PO prednisone today and taper from 40mg daily and wean by 10mg every 3rd day until off.
CXR this AM shows no recurrence of PTX. Patient is stable for discharge home. Pulmonary service will now sign off. I will arrange for outpatient follow-up with us in the office. Please reconsult if there are any additional questions or concerns,
or if respiratory status deteriorates.
Assessment
-
Patient is a 73 year old F with PMH significant for asthma who presents to ED complaining of chronic SOB for several weeks.� Patient then noted sudden and severe SOB in the past 24 hours, acute on chronic worsening. In the ED, evaluation
revealed R sided pneumothorax with concern for tension s//p Chest tube placement in ED. We are consulted for eval 08/10/23.
Acute R sided pneumothorax s/p chest tube placement 08/09/23 - placed in ER --> removed at bedside by me on 08/11
Asthma exacerbation
Outpatient treatment for possible bronchitis, fever at home (likely due to URI prior to arrival)
Hyponatremia
Hyperglycemia
Conditions present DINING HOST
R arm fracture
Osteoporosis
Cystocele vag sling 2006
Constipation
Asthma
Plan
No oxygen was needed on admission, currently breathing comfortably on room air with SpO2 >92%
Prior history of lung disease is noted including severe asthma having required intubation in the past.�
She does not see pulmonary OP and is not on controller inhaler medications. No sign Eos on cbc. --> considering her acute exacerbation, she is amenable to starting maintenance therapy with LABA/ICS --> continue Symbicort 160mcg and continue this
on discharge
She denies any prior history of pneumothorax.�
Nonsmoker.
Acute ptx suspect from coughing due to asthma flare
CXR obtained indicating moderate size with possible tension s/p chest tube placement 08/09/23
Repeat CXR 08/10/23 appears improved--small apical ptx seen, suction continued overnight
Placed on water seal AM of 08/11/23, repeat CXR shows that right apical pneumothorax has resolved.
Patient has had continuous waterseal overnight (08/10 - 08/11) and there was no persistent air leak on 08/11 --> chest tube removed in late afternoon on 08/11
Other imaging reviewed, CT showing ptx, no bullae
Avoid incentive spirometer or any sudden inspiratory effort considering her recent acute large right-sided pneumothorax as this could be a risk factor for recurrence of pneumothorax.
Asthma exacerbation
Added LABA/ICS to reduce her cough-->symbicort 160mcg --> this will continue at home upon discharge--> patient is in agreement with this even though she has not been on maintenance inhaler therapy prior to this current hospitalization
Continue systemic steroids --> ok to transition to PO steroids today beginning at 40mg and reducing by 10mg every 3rd day until off.
Will need outpatient pulmonary evaluation in our office for PFTs and 6MWT
Reviewed with patient and all questions were answered.
CXR this AM shows no recurrence of PTX. Patient is stable for discharge home. I will arrange for outpatient follow-up with us in the office. Please reconsult if there are any additional questions or concerns, or if respiratory status
deteriorates. Thank you for allowing us to be involved in the care of this patient.
There was a low level of medical decision making for this case considering her acute exacerbation of of asthma which is now improved, and her acute right side pneumothorax which is now resolved.
Diagnostic Data
Chest XR- 08/09/23- A right chest tube catheter has been placed. No radiographically demonstrable residual pneumothorax. Moravian of mediastinal alignment. Minor atelectasis at the right lung base. Small amount of subcutaneous emphysema adjacent to
the right lateral chest wall.
CXR 08-11-2023: Previously noted trace pneumothorax at the right apex has resolved. Right chest tube catheter remains in similar position as that seen previously. Relatively stable minor subcutaneous emphysema in the right chest wall. Mild, slightly
increased subcutaneous emphysema at the base of the right neck. No evidence of pneumonia or congestive heart failure.
CXR 08-13-2023: No active cardiopulmonary disease.
CT Scan: CHEST 08/09/23- Large right pneumothorax, suggested under mild tension, with slight leftward shift of the heart and mediastinum.
Reports and relevant images were personally reviewed.
Subjective Data
-
Date of Service:
Date of Service: August 13, 2023
Chief Complaint: Pulmonary Follow Up
Subjective:
Patient was seen and evaluated this morning. CXR today shows no evidence of recurrent pneumothorax. Patient feels well. Eager to go home. On room air saturating 93-95%. Denies chest pain, headache, shortness of breath, fevers or chills.
Review of Systems
General: Other (Negative unless mentioned above)
Objective Data
Data Reviewed
Vital Signs / I&O / Oxygen:
Vital Signs
Temp Pulse Resp BP Pulse Ox
98 F 76 17 171/102 95
08/13/23 11:37 08/13/23 10:18 08/13/23 08:00 08/13/23 10:18 08/13/23 10:18
Intake and Output
08/12/23 08/13/23 08/14/23
06:59 06:59 06:59
Intake Total 1230 / 1230 1480 / 1480
Output Total 700 / 700 0 / 0
Balance 530 / 530 1480 / 1480
SaO2 95
Nasal Cannula flow liters per 2
minute
Physical Exam
General: Comfortable and Other (NAD)
HEENT: Normocephalic and Sinus Tenderness
Cardiovascular: S1-S2 and Peripheral Edema (negative)
Respiratory: Wheeze (negative), Crackles (right middle lung field to RLL), Rhonchi (negative), Non-Labored Respirations and Stridor (negative)
GI: Soft, Non Distended and Non Tender
Neurology: AO x 3 and No Motor Deficits
Skin: Warm and Dry
Labs/Micro/Reports
Lab Data
08/10/23 03:11
08/10/23 03:11
Microbiology
08/09/23 19:26 Blood/Venous Blood Culture - Preliminary
No Growth in 72 hours- Final report to follow
08/09/23 19:26 Blood/Venous Blood Culture - Preliminary
No Growth in 72 hours- Final report to follow
[2023-08-13] MEDS: SOLU-MEDROL PF 40 MG IV (09:00)
--- NOTE | 2023-08-13 10:00 | PTCARENOTE ---
Patient sent to XRAY for CXR.
--- NOTE | 2023-08-13 11:54 | W.DS.TRANS ---
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
-
Discharge Instructions:
Discharge Diagnosis/Procedures Asthma
Right pneumothorax.
Diet Regular
Instructions:
Stand-Alone Forms:
Changes to Home Medications: Yes
Discharge Medications:
DC Medications w/original date entered in [facility]
albuterol sulfate 90 mcg/actuation aerosol inhaler (ProAir HFA) 2 puff inhalation R Q6HPRN PRN sob 08/09/23
albuterol sulfate 2.5 mg/3 mL (0.083 %) solution for nebulization 2.5 mg (3 mL) inhalation R Q4HPRN PRN shortness of breath #120 mL 08/13/23
budesonide-formoterol HFA 160 mcg-4.5 mcg/actuation aerosol inhaler (Symbicort) 2 puff inhalation R BID #1 g 08/13/23
prednisone 10 mg tablet 10 mg PO DIRECTED #20 tabs 08/13/23
Home Medication Changes
aii of above
Pending Results: No
--- NOTE | 2023-08-13 12:15 | PTCARENOTE ---
I spoke with patient's daughter Erma this morning who requested patient have VN. Patient declined VN to both this RN and to Vicki EAS[facility]. She reports that her son, who is a nurse will come and check on her. I advised that her daughter suggested it
and she said 'I know, I was already fighting with her.'
--- NOTE | 2023-08-13 12:23 | CM ---
Patient seen bedside, offered VN to patient as daughter was requesting VN for patient. Patient reports she has support from her son and her and she does not need VN services. Patient reports she is 'annoyed' with her daughter and is able to
make her own decisions. CM will continue to follow for discharge planning needs.
Plan; home no needs, declining VN.
== END 2023-08-13 12:36 | disposition home or self-care (01) | DRG 200 ==
LOC: IMU 23:45
PROVIDERS: Internal Medicine Critical Care Medicine; Physician Assistant; ADMITTING PHYSICIAN Hospitalist; ATTENDING PHYSICIAN Internal Medicine; CONSULT PHYSICIAN Internal Medicine; EMERGENCY PHYSICIAN Emergency Medicine; FAMILY PHYSICIAN Family Medicine
PROC: 0W9930Z Drainage of Right Pleural Cavity with Drainage Device, Percutaneous Approach (ICD-10-PCS; 2023-08-09)
PROC: 0WP9X0Z Removal of Drainage Device from Right Pleural Cavity, External Approach (ICD-10-PCS; 2023-08-12)
DX: J93.0 Spontaneous tension pneumothorax (principal); E87.1 Hypo-osmolality and hyponatremia; J45.41 Moderate persistent asthma with (acute) exacerbation; T79.7XXA Traumatic subcutaneous emphysema, initial encounter; J00 Acute nasopharyngitis [common cold]; R73.9 Hyperglycemia, unspecified; M81.0 Age-related osteoporosis without current pathological fracture; K59.00 Constipation, unspecified; I10 Essential (primary) hypertension; T38.0X5A Adverse effect of glucocorticoids and synthetic analogues, initial encounter; X58.XXXA Exposure to other specified factors, initial encounter; Z11.52 Encounter for screening for COVID-19
CPT/HCPCS: 32551; 71045; 71046; 71250; 80048; 80053; 82805; 83605; 85025; 85027; 85610; 87040; 87502; 87811; 93005; 94640; 94644; 96374; 96375; 99291

== ENCOUNTER → 2023-11-04 12:47 | Outpatient (REF) | payer MEDICARE, OTHER, SELFPAY | LOC: RAD 12:47 | PROVIDERS: ATTENDING PHYSICIAN Nurse Practitioner Family | DX: Z87.09 Personal history of other diseases of the respiratory system (principal) | CPT/HCPCS: 71046 ==

== ENCOUNTER → 2023-12-12 14:45 | Outpatient (REF) | payer MEDICARE, OTHER, SELFPAY | LOC: WDC 14:45 | PROVIDERS: ATTENDING PHYSICIAN Family Medicine | DX: Z12.31 Encounter for screening mammogram for malignant neoplasm of breast (principal); M81.0 Age-related osteoporosis without current pathological fracture | CPT/HCPCS: 77063; 77067; 77080 ==

== ENCOUNTER → 2024-12-16 12:43 | Outpatient (REF) | payer MEDICARE, OTHER, SELFPAY | LOC: WDC 12:43 | PROVIDERS: ATTENDING PHYSICIAN Family Medicine | DX: Z12.31 Encounter for screening mammogram for malignant neoplasm of breast (principal) | CPT/HCPCS: 77063; 77067 ==

== ENCOUNTER → 2024-12-23 09:27 | Outpatient (REF) | payer MEDICARE, OTHER, SELFPAY | LOC: WDC 09:27 | PROVIDERS: ATTENDING PHYSICIAN Family Medicine | DX: R92.8 Other abnormal and inconclusive findings on diagnostic imaging of breast (principal) | CPT/HCPCS: 76642 ==

== ENCOUNTER → 2025-04-02 12:47 | Outpatient (REF) | payer MEDICARE, OTHER, SELFPAY | LOC: RAD 12:47 | PROVIDERS: ATTENDING PHYSICIAN Nurse Practitioner Family | DX: J06.9 Acute upper respiratory infection, unspecified (principal) | CPT/HCPCS: 71046 ==

== ENCOUNTER → 2025-05-31 09:31 | Outpatient (REF) | payer MEDICARE, OTHER, SELFPAY | LOC: RAD 09:31 | PROVIDERS: ATTENDING PHYSICIAN Family Medicine | DX: R10.13 Epigastric pain (principal) | CPT/HCPCS: 74246 ==